=== PATIENT | female | born 1945 | race Caucasian/White ===

== ENCOUNTER 2016-10-18 14:40 | Outpatient (CLI) | payer MEDICARE | END 2016-10-18 14:41 | disposition home or self-care (01) | LOC: HPCALD 14:40 | PROVIDERS: ATTEND Family Medicine | DX: N39.0 Urinary tract infection, site not specified (principal) | CPT/HCPCS: 87077; 87086; 87186 ==

== ENCOUNTER 2018-08-27 07:07 | Emergency (ER) | payer MEDICARE ==
[2018-08-27 07:38] LABS: Clarity Slightly Cloudy (Clear)
[2018-08-27 07:39] LABS: Bilirubin Negative (Negative); Blood, Urine Negative (Negative); Glucose, Urine (Dipstick) Negative (Negative); Leukocyte Trace (Negative); Nitrite Positive (Negative); Protein, Urine (Dipstick) 30 mg/dL (Neg-Trace); pH, Urine 5.5 (5.0-9.0)
[2018-08-27 07:46] LABS: Bacteria/HPF 3+ HPF (None Seen); RBC/HPF None Seen HPF (0-3); Yeast-All Forms 1+ HPF (None Seen)
[2018-08-27] MEDS ORDERED: Sulfameth/Trimethoprim DS 800-160mg TAB ONE ×2 (07:57→07:58)
[2018-08-27] MEDS ORDERED: Phenazopyridine HCl 97.5 MG TABLET ONE (07:57)
== END 2018-08-27 08:03 | disposition home or self-care (01) ==
LOC: BURERS 07:07
DX: N39.0 Urinary tract infection, site not specified (principal); E11.9 Type 2 diabetes mellitus without complications; K21.9 Gastro-esophageal reflux disease without esophagitis; I10 Essential (primary) hypertension
CPT/HCPCS: 81003; 81015; 99283

== ENCOUNTER 2021-11-27 10:04 | Emergency (ER) | payer MEDICARE ==
[2021-11-27 11:04] LABS: #Basophils 0.1 thou/uL (0.0-0.2); #Eosinphils 0.1 thou/uL (0.0-0.7); #Lymphocytes 1.5 thou/uL (1.20-3.40); #Monocytes 0.5 thou/uL (0.11-0.59); %Basophils 0.6 % (0.0-1.0); %Eosinophils 1.2 % (0.0-10.0); %Lymphocytes 14.4 % (21.0-51.0); %Monocytes 5.3 % (0.0-10.0); %Neutrophils 78.4 % (42.0-75.0); Hemoglobin 14.3 g/dL (12.0-16.0); Mean Corpuscular HGB CONC 33.5 g/dL (32.0-36.0); Mean Corpuscular Hemoglobin 29.9 pg (27.0-31.0); Mean Corpuscular Volume 89.5 fL (78.0-98.0); Mean Platelet Volume 7.2 fL (7.4-10.4); Platelet Count 213 thou/uL (130-400); RBC Distribution Width 13.5 % (11.5-14.5); Red Blood Cell (RBC) Count 4.76 mill/uL (4.20-5.40); White Blood Cell (WBC) Count 10.2 thou/uL (4.8-10.8)
[2021-11-27] MEDS ORDERED: Ondansetron ODT 4 MG TAB ONE (11:08)
[2021-11-27 11:20] LABS: CK (CPK) 59 U/L (29-168); Lipase 24 U/L (8-78)
[2021-11-27 12:45] LABS: ALT (SGPT) 17 U/L (8-55); AST (SGOT) 17 U/L (5-34); Alkaline Phosphatase 127 U/L (40-110); Anion Gap 15 mmol/L (10-20); BUN (Urea Nitrogen) 9 mg/dL (9.8-20.1); Bilirubin, Total 0.9 mg/dL (0.2-1.2); Calc. Creatinine Clearance 0 mL/min (70-130); Calcium 9.4 mg/dL (7.8-10.44); Carbon Dioxide 25 mmol/L (23-31); Chloride 104 mmol/L (98-107); Estimated GFR 61; Globulin 2.9 g/dL (2.4-3.5); Glucose 199 mg/dL (83-110); Potassium 3.6 mmol/L (3.5-5.1); Protein, Total 6.9 g/dL (5.8-8.1); Sodium 140 mmol/L (136-145)
[2021-11-27] MEDS ORDERED: predniSONE 20 MG TAB ONE (13:07)
== END 2021-11-27 14:00 | disposition home or self-care (01) ==
LOC: BURERS 10:04
DX: M54.50 Low back pain, unspecified (principal); R11.0 Nausea; E11.9 Type 2 diabetes mellitus without complications; K21.9 Gastro-esophageal reflux disease without esophagitis; I10 Essential (primary) hypertension; Z79.82 Long term (current) use of aspirin; Z79.899 Other long term (current) drug therapy
CPT/HCPCS: 36415; 74176; 80053; 82550; 83605; 83690; 85025; 93005; J7512; Q0162